=== PATIENT | female | born 1990 ===

== ENCOUNTER 2023-01-23 10:22 | Emergency (ER) | payer OTHER, MEDICAID, SELFPAY ==
--- NOTE | ~2023-01-23 | CT_ITS ---
EXAMINATION: CT ABDOMEN AND PELVIS WITH CONTRAST CLINICAL INFORMATION: Right lower quadrant abdominal pain COMPARISON: None available. TECHNIQUE: Multidetector volumetric images were obtained from the superior aspect of the liver through the pubic symphysis following administration 85 mL of Omnipaque 350 intravenous contrast. Sagittal and coronal reformatted images were obtained on the technologist's workstation. Oral contrast: No This CT examination was performed using dose optimization techniques as appropriate, variously including the following: *Automated exposure control *Adjustment of mA and/or kV according to patient size (this includes techniques or standardized protocols for targeted exams where dose is matched to indication/reason for exam; i.e. extremities or head) *Use of iterative reconstruction technique DLP: 509 mGy-cm FINDINGS: RECORD LABEL INTERNSHIP: Nonobstructive bowel pattern. Right hemipelvic phlebolith. LUNG BASES: Nonenlarged heart. No pericardial effusion. Minor left lower lobe atelectasis. LIVER, GALLBLADDER, AND BILIARY TREE: The liver is normal in size, shape, and attenuation. No focal hepatic lesion or biliary ductal dilatation is present. The gallbladder is unremarkable with no evidence of radiopaque gallstones, gallbladder wall thickening, or obvious pericholecystic inflammatory changes. PANCREAS: Unremarkable. SPLEEN: Unremarkable. ADRENAL GLANDS: Unremarkable. KIDNEYS AND URETERS: The kidneys are normal in size, shape, and attenuation. No hydronephrosis, hydroureter, or calculi seen. No perinephric stranding. BLADDER: Distended and unremarkable. GASTROINTESTINAL TRACT: Small hiatal hernia. Decompressed stomach. Nonobstructive bowel pattern. Study limited by lack of oral contrast. Nonobstructive bowel pattern. Unremarkable terminal ileum and appendix. Moderate fecal retention. ABDOMINAL WALL: Rectal diastasis containing transverse colon. Transverse colon does not extend into moderate sized umbilical hernia at this time. LYMPH NODES: Normal. VASCULAR: Unremarkable. PELVIC VISCERA: Prominent heterogeneous uterus. Endometrium measures 1.6 cm. 2 cm right ovarian cyst and left ovarian follicles with free fluid. Prominent enhancing left periuterine vessels and prominent gonadal veins. OSSEOUS STRUCTURES: Unremarkable. CT/CT abdomen pelvis w IV con IMPRESSION: CT findings raising possibility of left pelvic congestion syndrome. Correlate clinically. Enlarged heterogeneous uterus with thickened endometrium, ovarian follicles/cyst and free fluid. Correlate with menstrual status and symptomatology. Follow-up pelvic ultrasound if clinically indicated. Umbilical hernia and rectus diastasis. Fleischner guidelines were followed.
[2023-01-23 10:25] VITALS: BP 149/87; PULSE 76; RESP 19; TEMP 36.6; O2SAT 99; BMI 22.1
[2023-01-23 10:43] LABS: MANUAL DIFF FLAG NO
[2023-01-23 10:44] LABS: Basophils Absolute Auto 0.1 X10*3/uL (0.0-0.2); Basophils Percent Auto 0.6 % (0-2); Eosinophils Absolute Auto 0.5 X10*3/uL (0.0-0.4); Eosinophils Percent Auto 6.2 % (0-4); Hemoglobin 13.2 g/dl (12.0-16.0); Imm Gran Abs Auto 0.02 X10*3/uL (0.00-0.03); Imm Gran Pct Auto 0.2 % (0.0-0.4); Lymphocytes Absolute Auto 2.4 X10*3/uL (1.2-4.9); Lymphocytes Percent Auto 27.3 % (20-40); Mean Corpuscular HGB Conc 32.2 g/dl (31.0-35.0); Mean Corpuscular Hemoglobin 26.7 pg (27.0-33.0); Mean Corpuscular Volume 82.8 fL (80.0-98.0); Monocytes Absolute Auto 0.6 X10*3/uL (0.1-1.2); Monocytes Percent Auto 6.3 % (2-11); Neutrophils Absolute Auto 5.2 x10*3/uL (2.0-8.3); Neutrophils Percent Auto 59.4 % (45-73); Platelet Count 258 X10*3/uL (160-400); Red Blood Count 4.95 X10*6/uL (4.20-5.50); White Blood Count 8.8 X10*3/uL (4.8-10.8)
[2023-01-23 10:48] LABS: Appearance Urine Clear; Color Urine Yellow; Glucose Urine UA Negative (Negative); Leukocyte Esterase Urine Negative (Negative); Nitrite Urine Negative (Negative); PH 6.5 (5.0-9.0); Specific Gravity - Urine <= 1.005 (1.005-1.025); Urine Blood Negative (Negative); Urine Ketones Negative (Negative); Urine Protein Negative (Neg-Trace)
[2023-01-23 10:50] LABS: UPreg QC Valid YES; Urine Pregnancy NEGATIVE (NEGATIVE)
[2023-01-23 11:03] LABS: Alanine Aminotransferase 15 U/L (0-31); Albumin Level 4.4 g/dL (3.5-5.0); Alkaline Phosphatase 66 U/L (39-117); Anion Gap 10 (12-20); Aspartate Amino Transferase 19 U/L (5-31); Bilirubin Direct 0.1 mg/dL (0.0-0.5); Bilirubin Total 0.3 mg/dL (0.0-1.0); Blood Urea Nitrogen 6 mg/dL (9-16); Calcium 9.7 mg/dL (8.4-10.2); Carbon Dioxide 27 mmol/L (22-29); Chloride 105 mmol/L (96-108); Creatinine Clr Calc Pharmacy 113.5; Estimated Glomerular Filt Rate > 60; Glucose Random 83 mg/dL (60-115); Lipase 17 U/L (8-78); Potassium 3.6 mmol/L (3.3-5.1); Sodium 138 mmol/L (135-145); Total Protein 8.1 g/dL (6.5-8.0)
[2023-01-23 11:41] VITALS: BP 128/80; PULSE 81; RESP 16; TEMP 36.4; O2SAT 100
--- NOTE | 2023-01-23 11:46 | PC.NURSE ---
pt a&ox3, vss, pt verblaizing 8/10 right flank and RLQ pain that started 3 days ago. pt describes pain as burning sensation. pt denies v/d but has had nausea recently. RLQ and r flank tender to the touch. normoactive bs present. call walker placed within reach.
--- NOTE | 2023-01-23 11:53 | ED.ABDPAIN ---
HPI - Abdominal Pain General Chief Complaint: Abdominal Pain Stated Complaint: abdominal pain for 3 days Time Seen by Provider: 01/23/23 11:52 Source: patient Mode of arrival: ambulatory Limitations: no limitations History of Present Illness HPI narrative: RLQ pain for 3 days radiating into the back, slight nausea, no dysuria, no hematuria, LMP last month normal, denies MD elicited complaint: abdominal pain Onset (ago): day(s) Pain Consistency: constant Severity: mild Related Data Previous Rx's Medication Instructions Recorded naproxen 500 mg tablet (Naprosyn) 500 mg PO BID #20 tabs 01/23/23 Allergies Allergy/AdvReac Type Severity Reaction Status Date / Time No Known Allergies Allergy Verified 01/23/23 10:25 Review of Systems Review of Systems Yes all other systems are reviewed and are negative [facility] Social History Social History Alcohol intake: never Smoked in Last 30 Days: No Use of substances other than those prescribed or required for medical reasons: No Advance Directives: No Advance Directives Information Provided: No Patient : No Physical Exam ED Vital Signs: Vital Signs - 24 hr 01/23/23 10:25 01/23/23 11:41 01/23/23 13:23 Temperature 98 F 97.6 F Pulse Rate 76 81 73 Respiratory Rate 19 16 16 Blood Pressure 149/87 H 128/80 119/71 Pulse Oximetry 99 100 100 Oxygen Delivery Method Room Air Room Air Room Air BMI result Body Mass Index 22.1 Const General: healthy appearing Nutritional Appearance: average body habitus Orientation/consciousness: oriented to person and patient oriented x3 Limitations: no limitations HENMT Head: Yes normal to inspection Ears: external ears normal General nose exam: Normal external nose present Mouth: Normal oral and palatal mucosa present and oropharynx normal Throat: Yes posterior oropharynx normal Eyes General: appearance normal, both eyes and all related structures Neck Neck: Yes normal visual inspection Chest Chest palpation & inspection: normal inspection of the chest Resp Auscultation: clear to auscultation bilaterally Cardio Jugular venous distension: no JVD Rate: regular rate Rhythm: regular rhythm Heart sounds: S1 normal heart sound present and S2 normal heart sound present GI Other: mild right lower quadrant pain, slight guarding no rebound General: Yes no CVA tenderness Back/Spine/Pelvis Back: no CVA tenderness Skin General skin exam: no rashes or lesions noted Neuro General: oriented to person and patient oriented x3 Cranial nerves: Yes CN's II-XII intact bilaterally Motor exam (neuro): 5/5 motor strength present throughout Extrem General: Yes normal to inspection Psych Appearance: grossly normal Course Reevaluation(s) Reevaluation #1: normal wbc, no evidence of appendicitis on CT. Will treat with NSAIDS Time: 13:20 Medical Decision Making Differential Diagnosis Differential Diagnoses: The differential diagnosis associated with the presentation includes (appendicitis, ectopic , ovarian cyst, UTI, pyelonephritis were all considered) Admission/Observation Consideration of admission/observation: Escalation of care including admission/observation considered (upon arrival this patient was considered for admission) Lab Data MDM Lab Attestation statement: I reviewed the patient's lab results. (no elevated WBC count, no UTI) 01/23/23 10:38 01/23/23 10:38 Labs: Lab Results 01/23/23 01/23/23 01/23/23 Range/Units 10:38 10:38 10:38 WBC 8.8 (4.8-10.8) X10*3/uL RBC 4.95 (4.20-5.50) X10*6/uL Hgb 13.2 (12.0-16.0) g/dl Hct 41.0 (37.0-47.0) % MCV 82.8 (80.0-98.0) fL MCH 26.7 L (27.0-33.0) pg MCHC 32.2 (31.0-35.0) g/dl RDW 13.0 (11.0-16.0) % Plt Count 258 (160-400) X10*3/uL MPV 10.0 (9.4-12.3) fL Immature Gran % (Auto) 0.2 (0.0-0.4) % Neut % (Auto) 59.4 (45-73) % Lymph % (Auto) 27.3 (20-40) % [place] % (Auto) 6.3 (2-11) % Eos % (Auto) 6.2 H (0-4) % Baso % (Auto) 0.6 (0-2) % Lymph # (Auto) 2.4 (1.2-4.9) X10*3/uL [place] # (Auto) 0.6 (0.1-1.2) X10*3/uL Eos # (Auto) 0.5 H (0.0-0.4) X10*3/uL Baso # (Auto) 0.1 (0.0-0.2) X10*3/uL Abs Immat Gran (auto) 0.02 (0.00-0.03) X10*3/uL Absolute Neuts (auto) 5.2 (2.0-8.3) x10*3/uL Absolute Nucleated RBC 0.000 (0.0-0.012) X10*3/uL Nucleated RBC % (auto) 0.0 (0.0-0.2) /100WBC Sodium 138 (135-145) mmol/L Potassium 3.6 (3.3-5.1) mmol/L Chloride 105 (96-108) mmol/L Carbon Dioxide 27 (22-29) mmol/L Anion Gap 10 L (12-20) BUN 6 L (9-16) mg/dL Creatinine 0.66 (0.5-1.4) mg/dL Estim Creat Clear Calc 113.5 Estimated GFR > 60 Random Glucose 83 (60-115) mg/dL Calcium 9.7 (8.4-10.2) mg/dL Total Bilirubin 0.3 (0.0-1.0) mg/dL Direct Bilirubin 0.1 (0.0-0.5) mg/dL AST 19 (5-31) U/L ALT 15 (0-31) U/L Alkaline Phosphatase 66 (39-117) U/L Total Protein 8.1 H (6.5-8.0) g/dL Albumin 4.4 (3.5-5.0) g/dL Lipase 17 (8-78) U/L Urine Color Yellow Urine Appearance Clear Urine pH 6.5 (5.0-9.0) Ur Specific [place] <= 1.005 (1.005-1.025) Urine Protein Negative (Neg-Trace) mg/dL Urine Glucose (UA) Negative (Negative) mg/dL Urine Ketones Negative (Negative) mg/dL Urine Blood Negative (Negative) Urine Nitrite Negative (Negative) Ur Leukocyte Esterase Negative (Negative) Urine Test (NEGATIVE) 01/23/23 Range/Units 10:38 WBC (4.8-10.8) X10*3/uL RBC (4.20-5.50) X10*6/uL Hgb (12.0-16.0) g/dl Hct (37.0-47.0) % MCV (80.0-98.0) fL MCH (27.0-33.0) pg MCHC (31.0-35.0) g/dl RDW (11.0-16.0) % Plt Count (160-400) X10*3/uL MPV (9.4-12.3) fL Immature Gran % (Auto) (0.0-0.4) % Neut % (Auto) (45-73) % Lymph % (Auto) (20-40) % [place] % (Auto) (2-11) % Eos % (Auto) (0-4) % Baso % (Auto) (0-2) % Lymph # (Auto) (1.2-4.9) X10*3/uL [place] # (Auto) (0.1-1.2) X10*3/uL Eos # (Auto) (0.0-0.4) X10*3/uL Baso # (Auto) (0.0-0.2) X10*3/uL Abs Immat Gran (auto) (0.00-0.03) X10*3/uL Absolute Neuts (auto) (2.0-8.3) x10*3/uL Absolute Nucleated RBC (0.0-0.012) X10*3/uL Nucleated RBC % (auto) (0.0-0.2) /100WBC Sodium (135-145) mmol/L Potassium (3.3-5.1) mmol/L Chloride (96-108) mmol/L Carbon Dioxide (22-29) mmol/L Anion Gap (12-20) BUN (9-16) mg/dL Creatinine (0.5-1.4) mg/dL Estim Creat Clear Calc Estimated GFR Random Glucose (60-115) mg/dL Calcium (8.4-10.2) mg/dL Total Bilirubin (0.0-1.0) mg/dL Direct Bilirubin (0.0-0.5) mg/dL AST (5-31) U/L ALT (0-31) U/L Alkaline Phosphatase (39-117) U/L Total Protein (6.5-8.0) g/dL Albumin (3.5-5.0) g/dL Lipase (8-78) U/L Urine Color Urine Appearance Urine pH (5.0-9.0) Ur Specific [place] (1.005-1.025) Urine Protein (Neg-Trace) mg/dL Urine Glucose (UA) (Negative) mg/dL Urine Ketones (Negative) mg/dL Urine Blood (Negative) Urine Nitrite (Negative) Ur Leukocyte Esterase (Negative) Urine Test NEGATIVE (NEGATIVE) Independent Interpretation I performed an independent interpretation of an: CT Scan (no appendicitis seen by me) Radiology Impression Discussion of test interpretation with radiology: I have reviewed the radiologist's reading. (no appendicitis) Tests considered The following testing was considered but not selected: I considered an ultrasound but patientt was not and there is no evidence of large ovarian cyst Prescription Management I considered prescription management with: Antibiotic (but no evidence of UTI or infection) Medications Administered Discontinued Medications Generic Name Dose Route Start Last Admin Trade Name Freq PRN Reason Stop Dose Admin Iohexol 85 ml 01/23/23 12:28 01/23/23 12:28 Iohexol 350 Mg/Ml 100 Ml Infus..Btl IV 01/23/23 12:29 85 ml ONCE ONE Administration Ketorolac Tromethamine 30 mg 01/23/23 13:25 01/23/23 13:39 Ketorolac Tromethamine 30 Mg/Ml Vial IVPUSH 01/23/23 13:26 30 mg ONCE ONE Administration Discharge Plan Discharge Clinical Impression: Abdominal pain Patient Disposition: Home, Self-Care Instructions: Abdominal Pain (ED) Prescriptions: New naproxen [Naprosyn] 500 mg tablet 500 mg PO BID Qty: 20 0RF Referrals: Physician,Unknown J [Primary Care Provider] - 3 days Stand Alone Forms: Work/School Release Interventions: ED Discharge Assessment Last Done: 01/23/23 13:47
--- OUTSIDE RECORDS SUMMARY | 2023-01-23 11:59 | XMS_ITS | Continuity of Care Document ---
Author Name Unknown Organization [facility] ter Address [address] [place] [id number]- Care Team Providers Care Application Development Team Lead Name Role Phone Mercy Arias DO Primary Care Physician Encounter [facility] Date(s): 08/13/19 - 08/15/[address] [address]- [facility] Discharge Disposition: A-D/C Home Attending Physician: Tamera Lujan MD Admitting Physician: Tamera Lujan MD Referring Physician: Not on Staff, Referring MD Allergies, Adverse Reactions, Alerts Substance Reaction Severity Status NKA Active Immunizations Given and Recorded Vaccine Date Status Refusal Reason tetanus/diphtheria/pertussis, acel(Tdap) 06/02/19 Given influenza virus vaccine, inactivated 03/17/19 Give n influenza virus vaccine, inactivated 06/24/17 Give n Medications ferrous sulfate 325 mg oral enteric coated tablet 325 mg, 1, tablet, By Mouth, Daily, # 90 tablet, Refills 1, Tot. Refills 1, Maintenance, 06/16/19 15:39:00 EST, Route to Pharmacy Electronically, [facility] #[id number], 170, cm, 06/16/19 15:27:00 EST, Height Start Date: 06/16/19 Status: Ordered Flonase 50 mcg/inh nasal spray 1 sprays, Nares, Both, Daily in AM, # 1 each, 6 Refills, Maintenance, 06/24/17 15:45:43 EST, [place] Start Date: 06/24/17 Status: Ordered Multivitamins with Vitamin B Complex, Vitamin C, Minerals and L- Methylfolate oral capsule 1 capsule, By Mouth, Daily, # 30 capsule, 11 Refills, Maintenance, 01/01/19 15:31:22 EDT, Capsule, 1 capsule By Mouth Daily Start Date: 01/01/19 Status: Ordered Problem List Condition Effective Dates Status Health Status Inform ant Anemia(Confirmed) Active Body mass index (BMI) less t vargas or equal to 19 in adult(Confirmed) Active Size of fetus inconsistent w ith dates, antepartum(Confirmed) Active Hx of section(Confirmed) Active Vital Signs Most recent to oldest [Reference Range]: 1 2 3 Height 168 cm (08/15/19 8:31 AM) 168 cm (08/15/19 12:22 AM) 168 cm (08/14/19 5:00 PM) Weight 70.5 kg (08/13/19 7:39 AM) Oxygen Saturation [94-100 %] 99 % (08/13/19 2:00 PM) 99 % (08/13/19 1:45 PM) 99 % (08/13/19 11:45 AM) Pulse Rate [55-90 bpm] 75 bpm (08/15/19 8:31 AM) 72 bpm (08/15/19 12:22 AM) 77 bpm (08/14/19 5:00 PM) Body Mass Index [18.5-24.99] 24.98 (08/13/19 7:39 AM) Blood Pressure [90-138/55-84 mm Hg] 116/68mm Hg (08/15/19 8:31 AM) 123/72mm Hg (08/15/19 12:22 AM) 119/72mm Hg (08/14/19 5:00 PM) Respiratory Rate [16-30 br/min] 20 br/min (08/15/19 9:02 AM) 20 br/min (08/15/19 9:02 AM) 19 br/min (08/15/19 8:31 AM) Temperature [96.8-100.4 DegF] 97.9 DegF (08/15/19 8:31 AM) 98.1 DegF (08/15/19 12:22 AM) 98.5 DegF (08/14/19 5:00 PM) Mode of Delivery (Oxygen) Room air (08/13/19 6:51 AM) Blood pressure sites Arm, right (08/15/19 8:31 AM) Arm, left (08/14/19 12:00 AM) Arm, right (08/13/19 9:00 PM) Temperature Route Oral (08/15/19 8:31 AM) Oral (08/15/19 12:22 AM) Oral (08/14/19 5:00 PM) Dry Weight 70.5 kg (08/13/19 7:39 AM) Weight Obtained Via Patient/family state d (08/13/19 7:39 AM) Dry Weight Obtained Via Patient/family s tated (08/13/19 7:39 AM) Sensory deficits None (08/13/19 7:39 AM) None (08/13/19 7:39 AM) Mobility assistance Independent (08/13/19 7:39 AM) Social History Social History Type Response Smoking Status Never (less than 100 in lifetime); Tobacco user in household: No entered on: 01/09/19 Sex
--- OUTSIDE RECORDS SUMMARY | 2023-01-23 11:59 | XMS_ITS | Continuity of Care Document ---
Author Name Unknown Organization [facility] ter Address [address] [place] [id number]- Care Team Providers Care Sales Relationship Manager Name Role Phone Niall MORTENSEN, Krystyna Primary Care Physician Encounter [facility] [place] Date(s): 05/01/22 - 05/31/[address] [address] Allergies, Adverse Reactions, Alerts No Known Allergies Immunizations Given and Recorded Vaccine Date Status Refusal Reason SARS-CoV-2 (COVID-19) mRNA-1273 vaccine 11/24/20 R ecorded SARS-CoV-2 (COVID-19) mRNA-1273 vaccine 10/27/20 R ecorded tetanus/diphtheria/pertussis, acel(Tdap) 06/02/19 Given influenza virus vaccine, inactivated 03/17/19 Give n influenza virus vaccine, inactivated 06/24/17 Give n Medications Drysol 20% topical solution See Instructions, apply as needed for excessive sweating, # 60 mL, 1 Refills, 05/05/21 12:00:00 EST, [facility] #[id number], apply as needed for excessive sweating, 168, cm, 10/06/20 15:49:00 EDT, Height, 70.5, kg, 08/13/19 11:32:00 EDT, Dry Weight Start Date: 05/05/21 Status: Ordered estarylla tablets estarylla tablets, See Instructions, # 30 each, Refills 11, Tot. Refills 11, Maintenance, take one tablet daily, 04/30/22 13:27:00 EST, Supply, 168, cm, 02/27/22 14:12:00 EDT, Height, 58.8, kg, 06/13/21 17:35:00 EST, Dry Weight Start Date: 04/30/22 Status: Ordered ferrous sulfate 325 mg oral enteric coated tablet 325 mg, 1, tablet, By Mouth, Daily, # 90 tablet, Refills 1, Tot. Refills 1, Maintenance, 06/16/19 15:39:00 EST, Route to Pharmacy Electronically, [facility] #[id number], 170, cm, 06/16/19 15:27:00 EST, Height Start Date: 06/16/19 Status: Ordered Flonase 50 mcg/inh nasal spray 1 sprays, Nares, Both, Daily in AM, # 16 Gm, 6 Refills, Maintenance, 10/18/21 14:50:00 EDT, [place], [facility] #[id number], 1 sprays Nares, Both Daily in AM,x30 days, 168, cm, 10/18/21 14:38:00 EDT, Height, 58.8, kg, 06/13/21 17:35:00 EST, Dry Weight Start Date: 10/18/21 Stop Date: 05/16/22 Status: Ordered Multivitamins with Vitamin B Complex, Vitamin C, Minerals and L- Methylfolate oral capsule 1 capsule, By Mouth, Daily, # 30 capsule, 11 Refills, Maintenance, 01/01/19 15:31:22 EDT, Capsule, 1 capsule By Mouth Daily Start Date: 01/01/19 Status: Ordered Sprintec 0.25 mg-35 mcg oral tablet 1 tablet, By Mouth, Daily, # 28 tablet, 1 Refills, Maintenance, 09/14/21 11:54:00 EDT, Tablet, [facility] #[id number], 1 tablet By Mouth Daily,x28 days, 168, cm, 10/06/20 15:49:00 EDT, Height, 58.8, kg, 06/13/21 17:35:00 EST, Dry Weight Start Date: 09/14/21 Stop Date: 11/09/21 Status: Ordered Zofran 4 mg oral tablet 1 tablet = 4 mg, By Mouth, Every 8 hours, # 12 tablet, 0 Refills, Acute 06/14/22 18:06:00 EST, 06/13/21 18:06:00 EST, Tablet, [facility] #[id number], Partial fill upon patient request if the prescription is for a schedule II opioid drug., 168, cm... Start Date: 06/13/21 Stop Date: 06/14/22 Status: Ordered Problem List Condition Confirmation Course Effective Dates Status Health St atus Informant Anemia Confirmed Active Body mass index (BMI) less than or equal to 19 in adult Confirmed Active Size of fetus inconsistent with dates, antepartum Confirmed Active Hx of section Confirmed Active period Confirmed Active Social History Social History Type Response Smoking Status Never (less than 100 in lifetime); Tobacco user in household: No entered on: 01/09/19 Sex Patient Care team information Care Team Personnel Name: Krystyna Tierney MD Position: [facility] Primary Care Physician Member Role: PCP Address: Address: [address] [place] [address]- Care Team Related Persons Name: KAREN TRACY Address: [id number] Address: [address] [address] [place] Name: IVY LINARES Address: [address] [address]
--- OUTSIDE RECORDS SUMMARY | 2023-01-23 11:59 | XMS_ITS | Continuity of Care Document ---
Author Name Unknown Organization [facility] Address [address] [place] [address]- Care Team Providers Care Chief Cardiopulmonary Technologist Name Role Phone Krystyna Tierney MD Primary Care Physician Encounter [id number] Date(s): 06/14/22 - 07/14/[address] [address]- Attending Physician: Admtr, Ayanna Admitting Physician: AdmtrAyanna Referring Physician: Admtr, Ar8 Allergies, Adverse Reactions, Alerts No Known Allergies [...] 60 mL, 1 Refills, 05/05/21 12:00:00 EST, [facility] #[id number], apply as needed for excessive sweating, 168, [...] 06/16/19 15:39:00 EST, Route to Pharmacy Electronically, [facility] #[id number], 170, cm, 06/16/19 15:27:00 EST, Height Start Date: 06/16/19 Status: Ordered Flonase 50 mcg/inh nasal spray 1 sprays, Nares, Both, Daily in AM, # 16 Gm, 6 Refills, Maintenance, 06/14/22 15:49:00 EST, [place], [facility] #[id number], 1 sprays Nares, Both Daily in AM,x30 days, 168, cm, 06/14/22 15:02:00 EST, Height, 61, kg, 05/03/22 13:39:00 EST, Dry Weight Start Date: 06/14/22 Stop Date: 01/10/23 Status: Ordered metronidazole topical 0.75% gel with applicator 1 applicator, Vaginally, Daily at bedtime, # 70 Gm, 1 Refills, Maintenance, 06/29/22 13:31:00 EST, Gel, [facility] #[id number], Partial fill upon patient request if the prescription is for a schedule II opioid drug., 1 applicator Vaginally Daily... Start Date: 06/29/22 Stop Date: 07/09/22 Status: Ordered Marimar 3 mg-0.02 mg oral tablet 1 tablet, By Mouth, Daily, # 84 tablet, 4 Refills, Maintenance, 06/26/22 14:54:00 EST, [facility] #[id number], Partial fill upon patient request if the prescription is for a schedule II opioid drug., 1 tablet By Mouth Daily, 168, cm, 06/26/22 14:... Start Date: 06/26/22 Status: Ordered Multivitamins with Vitamin B Complex, Vitamin C, Minerals and L- Methylfolate oral capsule 1 capsule, By Mouth, Daily, # 30 capsule, 11 Refills, Maintenance, 01/01/19 15:31:22 EDT, Capsule, 1 capsule By Mouth Daily Start Date: 01/01/19 Status: Ordered Sprintec 0.25 mg-35 mcg oral tablet 1 tablet, By Mouth, Daily, # 28 tablet, 1 Refills, Maintenance, 09/14/21 11:54:00 EDT, Tablet, [facility] #[id number], 1 tablet By Mouth Daily,x28 days, 168, cm, 10/06/20 15:49:00 EDT, Height, 58.8, kg, 06/13/21 17:35:00 EST, Dry Weight Start Date: 09/14/21 Stop Date: 11/09/21 Status: Ordered Problem List Condition Confirmation Course [...] Team Personnel Name: Krystyna Tierney MD Position: [facility] Primary Care Physician Member Role: PCP Address: Address: [address] [place] [address]- Care Team Related Persons Name: KAREN TRACY Address: Address: [address] [address] Name: IVY LINARES Address: [address] [address]
--- OUTSIDE RECORDS SUMMARY | 2023-01-23 11:59 | XMS_ITS | Continuity of Care Document ---
Author Name Unknown Organization [facility] ter Address [address] [place] [address]- Care Team Providers Care Theatre Director Name Role Phone Mercy Arias DO Primary Care Physician Encounter [facility] Date(s): 06/05/19 - 06/05/[address] [address]- [facility] Attending Physician: Leona Mcintyre CNM Allergies, Adverse Reactions, Alerts Substance Reaction Severity Status NKA Active Immunizations Given and Recorded Vaccine Date Status Refusal Reason tetanus/diphtheria/pertussis, acel(Tdap) 06/02/19 Given influenza virus vaccine, inactivated 03/17/19 Give n influenza virus vaccine, inactivated 06/24/17 Give n Medications Drysol 20% topical solution 1 application, Topically, Daily at bedtime, PRN as needed for excessive sweating, # 60 mL, 1 Refills, Maintenance, 11/26/17 15:08:42 EDT, Solution, Rx in [place], 1 application Topically Daily at bedtime,PRN:as needed for excessive sweating Start Date: 11/26/17 Status: Ordered Flonase 50 mcg/inh nasal spray 1 sprays, Nares, Both, Daily in AM, # 1 each, 6 Refills, Maintenance, 06/24/17 15:45:43 EST, [place] Start Date: 06/24/17 Status: Ordered Multivitamins with Vitamin B Complex, Vitamin C, Minerals and L- Methylfolate oral capsule 1 capsule, By Mouth, Daily, # 30 capsule, 11 Refills, Maintenance, 01/01/19 15:31:22 EDT, Capsule, 1 capsule By Mouth Daily Start Date: 01/01/19 Status: Ordered Sudafed 24-Hour oral tablet, extended release 1 tablet = 240 mg, By Mouth, Daily, PRN as needed for cold symptoms, # 10 tablet, 0 Refills, Maintenance, 04/14/19 15:46:19 EST, ER Tablet Start Date: 04/14/19 Status: Ordered Social History Social History Type Response Smoking Status Never (less than 100 in lifetime); Tobacco user in household: No entered on: 01/09/19 Sex
--- OUTSIDE RECORDS SUMMARY | 2023-01-23 11:59 | XMS_ITS | Continuity of Care Document ---
Author Name Unknown Organization [facility] Address [address] [place] [address]- Care Team Providers Care Maturity Checker Name Role Phone Krystyna Tierney MD Primary Care Physician [phone] Encounter [facility] [place] Date(s): 09/30/20 - 11/05/[address] [address]- Attending Physician: Not on Staff, Attending MD Referring Physician: Krystyna Tierney MD Allergies, Adverse Reactions, Alerts Substance Reaction [...] 06/16/19 15:39:00 EST, Route to Pharmacy Electronically, [facility] #[id number], 170, cm, 06/16/19 15:27:00 EST, Height Start Date: 06/16/19 Status: Ordered Flonase 50 mcg/inh nasal spray 1 sprays, Nares, Both, Daily in AM, # 1 each, 6 Refills, Maintenance, 06/24/17 15:45:43 EST, [place] Start Date: 06/24/17 Status: Ordered Multivitamins with Vitamin B Complex, Vitamin C, Minerals and L- Methylfolate oral capsule 1 capsule, By Mouth, Daily, # 30 capsule, 11 Refills, Maintenance, 01/01/19 15:31:22 EDT, Capsule, 1 capsule By Mouth Daily Start Date: 01/01/19 Status: Ordered Sprintec 0.25 mg-35 mcg oral tablet 1 tablet, By Mouth, Daily, # 28 tablet, 11 Refills, Maintenance, 09/27/20 11:36:00 EDT, Tablet, [id number], 1 tablet By Mouth Daily,x28 days, 168, cm, 09/22/19 16:50:00 EDT, Height, 70.5, kg, 08/13/19 11:32:00 EDT, Dry Weight Start Date: 09/27/20 Stop Date: 08/29/21 Status: Ordered Problem List Condition Effective Dates Status Health Status Inform ant Anemia(Confirmed) Active Body mass index (BMI) less t vargas or equal to 19 in adult(Confirmed) Active Size of fetus inconsistent w ith dates, antepartum(Confirmed) Active Hx of section(Confirmed) Active period(Confirmed) Active Social History Social History Type Response Smoking Status Never (less than 100 in lifetime); Tobacco user in household: No entered on: 01/09/19 Sex
--- OUTSIDE RECORDS SUMMARY | 2023-01-23 11:59 | XMS_ITS | Continuity of Care Document ---
Author Name Unknown Organization [facility] Address [address] [place] [address]- Care Team Providers Care Seasonal Customer Service Associate Name Role Phone Hugo CRUMP Mercy Primary Care Physician Encounter [facility] [place] Date(s): 09/01/19 - 09/08/[address] [address] [place] Attending Physician: Nuria Haynes MD Admitting Physician: Nuria Haynes MD Referring Physician: Cheryl Conley CNM Allergies, Adverse Reactions, Alerts Substance Reaction [...] 06/16/19 15:39:00 EST, Route to Pharmacy Electronically, [facility] #[id number], 170, cm, 06/16/19 15:27:00 EST, Height Start Date: 06/16/19 Status: Ordered Flonase 50 mcg/inh nasal spray 1 sprays, Nares, Both, Daily in AM, # 1 each, 6 Refills, Maintenance, 06/24/17 15:45:43 EST, [place] Start Date: 06/24/17 Status: Ordered Multivitamins with [...] dates, antepartum(Confirmed) Active Hx of section(Confirmed) Active Social History Social History Type Response Smoking Status Never (less than 100 in lifetime); Tobacco user in household: No entered on: 01/09/19 Sex
--- OUTSIDE RECORDS SUMMARY | 2023-01-23 11:59 | XMS_ITS | Continuity of Care Document ---
Author Name Unknown Organization [facility] Address [address] [place] [address]- Care Team Providers Care Refrigeration Specialist Name Role Phone Krystyna Tierney MD Primary Care Physician Encounter [facility] [place] Date(s): 09/26/20 - 10/26/[address] [address]- Allergies, Adverse Reactions, Alerts Substance Reaction Severity [...] 06/16/19 15:39:00 EST, [id number], 170, cm, 06/16/19 15:27:00 EST, Height Start Date: 06/16/19 Status: Ordered Flonase 50 mcg/inh nasal spray 1 sprays, Nares, Both, Daily in AM, # 1 each, 6 Refills, Maintenance, 06/24/17 15:45:43 EST, [place] Start Date: 06/24/17 Status: Ordered Multivitamins with [...] 11 Refills, Maintenance, 09/27/20 11:36:00 EDT, Tablet, [facility] #[id number], 1 tablet By Mouth Daily,x28 days, 168, [...]
--- OUTSIDE RECORDS SUMMARY | 2023-01-23 11:59 | XMS_ITS | Continuity of Care Document ---
Author Name Unknown Organization [facility] Address [address] [place] [id number]- Care Team Providers Care Collar Starcher Name Role Phone Krystyna Tierney MD Primary Care Physician Encounter [facility] Date(s): 06/13/21 - 06/13/[address] [address]- Encounter Diagnosis COVID-19(Final) - 06/13/21 Discharge Disposition: A-D/C Home Attending Physician: Jm Reis MD Admitting Physician: Jm Reis MD Referring Physician: Not on Staff, Referring [...] 60 mL, 1 Refills, 05/05/21 12:00:00 EST, [facility] #[id number], apply as needed for excessive sweating, 168, cm, 10/06/20 15:49:00 EDT, Height, 70.5, kg, 08/13/19 11:32:00 EDT, Dry Weight Start Date: 05/05/21 Status: Ordered ferrous sulfate 325 mg oral enteric coated tablet 325 mg, 1, tablet, By Mouth, Daily, # 90 tablet, Refills 1, Tot. Refills 1, Maintenance, 06/16/19 15:39:00 EST, Route to Pharmacy Electronically, [facility] #[id number], 170, cm, 06/16/19 15:27:00 EST, Height Start Date: 06/16/19 Status: Ordered Flonase 50 mcg/inh nasal spray 1 sprays, Nares, Both, Daily in AM, # 1 each, 6 Refills, Maintenance, 06/24/17 15:45:43 EST, [place] Start Date: 06/24/17 Status: Ordered Multivitamins with [...] 11 Refills, Maintenance, 09/27/20 11:36:00 EDT, Tablet, [facility] #[id number], 1 tablet By Mouth Daily,x28 days, 168, cm, 09/22/19 16:50:00 EDT, Height, 70.5, kg, 08/13/19 11:32:00 EDT, Dry Weight Start Date: 09/27/20 Stop Date: 08/29/21 Status: Ordered Zofran 4 mg oral tablet 1 tablet = 4 mg, By Mouth, Every 8 hours, # 12 tablet, 0 Refills, Acute 06/14/22 18:06:00 EST, 06/13/21 18:06:00 EST, Tablet, [facility] #[id number], Partial fill upon patient request if the prescription is for a schedule II opioid drug., 168, cm... Start Date: 06/13/21 Stop Date: 06/14/22 Status: Ordered Problem List Condition Effective Dates Status Health Status Inform ant Anemia(Confirmed) Active Body mass index (BMI) less t vargas or equal to 19 in adult(Confirmed) Active Size of fetus inconsistent w ith dates, antepartum(Confirmed) Active Hx of section(Confirmed) Active period(Confirmed) Active Vital Signs Most recent to oldest [Reference Range]: 1 2 Weight 58.8 kg (06/13/21 5:35 PM) 58.8 kg (06/13/21 5:24 PM) Oxygen Saturation [94-100 %] 100 % (06/13/21 5:24 PM) Pulse Rate [55-90 bpm] 62 bpm (06/13/21 5:24 PM) Blood Pressure [90-138/55-84 mm Hg] 129/ 88mm Hg (06/13/21 5:24 PM) Respiratory Rate [16-30 br/min] 18 br/mi n (06/13/21 5:24 PM) Temperature [96.8-100.4 DegF] 98.9 DegF (06/13/21 5:24 PM) Mode of Delivery (Oxygen) Room air (06/13/21 5:24 PM) Blood pressure sites Arm, left (06/13/21 5:24 PM) Temperature Route Oral (06/13/21 5:24 PM) Dry Weight 58.8 kg (06/13/21 5:35 PM) 58.8 kg (06/13/21 5:24 PM) Weight Obtained Via Standing scale (06/13/21 5:24 PM) Dry Weight Obtained Via Standing scale (06/13/21 5:24 PM) Social History Social History Type Response Smoking Status Never (less than 100 in lifetime); Tobacco user in household: No entered on: 01/09/19 Sex
--- OUTSIDE RECORDS SUMMARY | 2023-01-23 11:59 | XMS_ITS | Continuity of Care Document ---
Author Name Unknown Organization [facility] Address [address] [place] [address]- Care Team Providers Care Certified Dialysis Technician Name Role Phone Mercy Arias DO Primary Care Physician Encounter [facility] [place] Date(s): 09/22/19 - 10/22/[address] [address]- [place] Attending Physician: AdmAyanna camara Admitting Physician: AdmtrAyanna Referring Physician: Admtr, Ar8 Allergies, Adverse Reactions, Alerts Substance Reaction Severity [...] 06/16/19 15:39:00 EST, Route to Pharmacy Electronically, [facility] #[id number], 170, cm, 06/16/19 15:27:00 EST, Height Start Date: 06/16/19 Status: Ordered Flonase 50 mcg/inh nasal spray 1 sprays, Nares, Both, Daily in AM, # 1 each, 6 Refills, Maintenance, 06/24/17 15:45:43 EST, [place] Start Date: 06/24/17 Status: Ordered Multivitamins with Vitamin B Complex, Vitamin C, Minerals and L- Methylfolate oral capsule 1 capsule, By Mouth, Daily, # 30 capsule, 11 Refills, Maintenance, 01/01/19 15:31:22 EDT, Capsule, 1 capsule By Mouth Daily Start Date: 01/01/19 Status: Ordered Sprintec 0.25 mg-35 mcg oral tablet 1 tablet, By Mouth, Daily, # 28 tablet, 11 Refills, Maintenance, 09/22/19 11:06:00 EDT, Tablet, [facility] #[id number], 1 tablet By Mouth Daily, 168, cm, 08/15/19 8:31:00 EDT, Height, 70.5, kg, 08/13/19 11:32:00 EDT, Dry Weight Start Date: 09/22/19 Status: Ordered Problem List Condition Effective Dates [...]
--- OUTSIDE RECORDS SUMMARY | 2023-01-23 11:59 | XMS_ITS | Continuity of Care Document ---
Author Name Unknown Organization [facility] Address [address] [place] [address]- Care Team Providers Care Screw Eye Assembler Name Role Phone Krystyna Tierney MD Primary Care Physician [place] [id number] Date(s): 02/27/22 - 03/29/[address] [address]- Attending Physician: AdmtrAyanna Admitting Physician: Admtr, Ar8 Referring Physician: Admtr, Ar8 Allergies, Adverse Reactions, [...] # 60 mL, 1 Refills, [id number], apply as needed for excessive sweating, 168, cm, 10/06/20 15:49:00 EDT, Height, 70.5, kg, 08/13/19 11:32:00 EDT, Dry Weight Start Date: 05/05/21 Status: Ordered ESTARYLLA TABLETS 28S ESTARYLLA TABLETS 28S, 1, tablet, By Mouth, Daily, # 28 tablet, 11 Refills, 168, cm, 10/18/21 14:38:00 EDT, Height, 58.8, kg, 06/13/21 17:35:00 EST, Dry Weight Start Date: 11/09/21 Status: Ordered ferrous sulfate 325 mg oral enteric coated tablet 325 mg, 1, tablet, By Mouth, Daily, # 90 tablet, Refills 1, Tot. Refills 1, Maintenance, 06/16/19 15:39:00 EST, Route to Pharmacy Electronically, [facility] #[id number], 170, cm, 06/16/19 15:27:00 EST, Height Start Date: 06/16/19 Status: Ordered Flonase 50 mcg/inh nasal spray 1 sprays, Nares, Both, Daily in AM, # 16 Gm, 6 Refills, Maintenance, 10/18/21 14:50:00 EDT, [place], [facility] #[id number], 1 sprays Nares, Both Daily in AM,x30 [...] 1 Refills, Maintenance, 09/14/21 11:54:00 EDT, Tablet, [facility] #[id number], 1 tablet By Mouth Daily,x28 days, 168, cm, 10/06/20 15:49:00 EDT, Height, 58.8, kg, 06/13/21 17:35:00 EST, Dry Weight Start Date: 09/14/21 Stop Date: 11/09/21 Status: Ordered Zofran 4 mg oral tablet 1 tablet = 4 mg, By Mouth, Every 8 hours, # 12 tablet, 0 Refills, Acute 06/14/22 18:06:00 EST, 06/13/21 18:06:00 EST, Tablet, [facility] #[id number], Partial fill upon patient request if the [...] on: 01/09/19 Sex Patient Care team information Personnel Name: Krystyna Tierney MD Address: Address: [address] [place] [address]
--- OUTSIDE RECORDS SUMMARY | 2023-01-23 11:59 | XMS_ITS | Continuity of Care Document ---
Author Name Unknown Organization [facility] Address [address] [place] [address]- Care Team Providers Care Adhesive Bandage Machine Operator Name Role Phone Krystyna Tierney MD Primary Care Physician Encounter [facility] [place] Date(s): 06/06/22 - 07/06/[address] [address] Allergies, Adverse Reactions, Alerts No Known Allergies [...] 60 mL, 1 Refills, 05/05/21 12:00:00 EST, [facility] #[id number], apply as needed for excessive sweating, 168, [...] 06/16/19 15:39:00 EST, Route to Pharmacy Electronically, [facility] #[id number], 170, cm, 06/16/19 15:27:00 EST, [place] Start Date: 06/16/19 Status: Ordered Flonase 50 mcg/inh nasal spray 1 sprays, Nares, Both, Daily in AM, # 16 Gm, 6 Refills, Maintenance, 06/14/22 15:49:00 EST, [place], [facility] #[id number], 1 sprays Nares, Both Daily in AM,x30 days, 168, cm, 06/14/22 15:02:00 EST, Height, 61, kg, 05/03/22 13:39:00 EST, Dry Weight Start Date: 06/14/22 Stop Date: 01/10/23 Status: Ordered metronidazole topical 0.75% gel with applicator 1 applicator, Vaginally, Daily at bedtime, # 70 Gm, 1 Refills, Maintenance, 06/29/22 13:31:00 EST, [place], [facility] #09292, Partial fill upon patient request if the prescription is for a schedule II opioid drug., 1 applicator Vaginally Daily... Start Date: 06/29/22 Stop Date: 07/09/22 Status: Ordered Marimar 3 mg-0.02 mg oral tablet 1 tablet, By Mouth, Daily, # 84 tablet, 4 Refills, Maintenance, 06/26/22 14:54:00 EST, [facility] #[id number], Partial fill upon patient request if the [...] 1 Refills, Maintenance, 09/14/21 11:54:00 EDT, Tablet, [facility][id number], 1 tablet By Mouth Daily,x28 days, 168, [...] Team Personnel Name: Krystyna Tierney MD Position: [facility] Primary Care Physician Member Role: PCP Address: Address: [address] [place] [address]- Care Team Related Persons Name: KAREN TRACY Address: [address] Address: home [address] [address] [place] Name: IVY LINARES Address: [address] [address]
--- OUTSIDE RECORDS SUMMARY | 2023-01-23 11:59 | XMS_ITS | Continuity of Care Document ---
Author Name Unknown Organization [facility] Address [address] [place] [address]- Care Team Providers Care Telephone Claims Representative Name Role Phone Krystyna Tierney MD Primary Care Physician Encounter [facility] [place] Date(s): 05/05/21 - 06/04/[address] [address] Allergies, Adverse Reactions, Alerts Substance Reaction Severity Status NKA Active Immunizations Given and Recorded Vaccine Date Status Refusal Reason tetanus/diphtheria/pertussis, acel(Tdap) 06/02/19 Given influenza virus vaccine, inactivated 03/17/19 Give n influenza virus vaccine, inactivated 06/24/17 Give n Medications Drysol 20% topical solution See Instructions, apply as needed for excessive sweating, # 60 mL, 1 Refills, 05/05/21 12:00:00 EST, [facility] #[id number], apply as needed for excessive sweating, 168, cm, 10/06/20 15:49:00 EDT, Height, 70.5, kg, 08/13/19 11:32:00 EDT, Dry Weight Start Date: 05/05/21 Status: Ordered ferrous sulfate 325 mg oral enteric coated tablet 325 mg, 1, tablet, By Mouth, Daily, # 90 tablet, Refills 1, Tot. Refills 1, Maintenance, 06/16/19 15:39:00 EST, Route to Pharmacy Electronically, [facility] #[id number], 170, cm, 06/16/19 15:27:00 EST, Height Start Date: 06/16/19 Status: Ordered Flonase 50 mcg/inh nasal spray 1 sprays, Nares, Both, Daily in AM, # 1 each, 6 Refills, Maintenance, 06/24/17 15:45:43 EST, [place] Start Date: 06/24/17 Status: Ordered Multivitamins with [...] 11 Refills, Maintenance, 09/27/20 11:36:00 EDT, Tablet, [facility] #[id number], 1 tablet By Mouth Daily,x28 days, 168, [...]
--- OUTSIDE RECORDS SUMMARY | 2023-01-23 11:59 | XMS_ITS | Continuity of Care Document ---
Author Name Unknown Organization [facility] Address [address] [place] [address]- Care Team Providers Care Software Application Tester Name Role Phone Krystyna Tierney MD Primary Care Physician [phone] [place] [facility] 10/06/20 - 11/05/[address] [address]- Attending Physician: AdmAyanna camara Admitting Physician: Admtr, Ar8 Referring Physician: Admtr, [...] 06/16/19 15:39:00 EST, Route to Pharmacy Electronically, [facility] #[id number], 170, cm, 06/16/19 15:27:00 EST, Height Start Date: 06/16/19 Status: Ordered Flonase 50 mcg/inh nasal spray 1 sprays, Nares, Both, Daily in AM, # 1 each, 6 Refills, Maintenance, 06/24/17 15:45:43 EST, [place] Start Date: 06/24/17 Status: Ordered Multivitamins with [...] 11 Refills, Maintenance, 09/27/20 11:36:00 EDT, Tablet, [facility] #[id number], 1 tablet By Mouth Daily,x28 days, 168, [...]
--- OUTSIDE RECORDS SUMMARY | 2023-01-23 11:59 | XMS_ITS | Continuity of Care Document ---
Author Name Unknown Organization [facility] Address [address], [place] [address]- Care Team Providers Care Paper Gluing Operator Name Role Phone Hguo CRUMP [facility] Primary Care Physician [phone] Encounter [facility] [place] Date(s): 08/04/19 - 08/11/19 [facility] [address] [place] [address]- Attending Physician: Coni Aquino MD Referring Physician: Olivia Wayne CNM Allergies, Adverse Reactions, Alerts Substance Reaction Severity Status NKA Active Immunizations Given and Recorded Vaccine Date Status Refusal Reason tetanus/diphtheria/pertussis, acel(Tdap) 06/02/19 Given influenza virus vaccine, inactivated 03/17/19 Give n influenza virus vaccine, inactivated 06/24/17 Give n Medications Drysol 20% topical solution 1 application, Topically, Daily at bedtime, PRN as needed for excessive sweating, # 60 mL, 1 Refills, Maintenance, 06/30/19 15:58:00 EST, Solution, [facility] #[id number], Rx in Fijian, 1 application Topically Daily at bedtime,PRN:as needed for... Start Date: 06/30/19 Status: Ordered ferrous sulfate 325 mg oral enteric coated tablet 325 mg, 1, tablet, By Mouth, Daily, # 90 tablet, Refills 1, Tot. Refills 1, Maintenance, 06/16/19 15:39:00 EST, Route to Pharmacy Electronically, [facility] #[id number], 170, cm, 06/16/19 15:27:00 EST, [place] Start Date: 06/16/19 Status: Ordered Flonase 50 mcg/inh nasal spray 1 sprays, Nares, Both, Daily in AM, # 1 each, 6 Refills, Maintenance, 06/24/17 15:45:43 EST, [place] Start Date: 06/24/17 Status: Ordered Multivitamins with [...] ER Tablet Start Date: 04/14/19 Status: Ordered Problem List Condition Effective Dates [...]
--- OUTSIDE RECORDS SUMMARY | 2023-01-23 11:59 | XMS_ITS | Continuity of Care Document ---
Author Name Unknown Organization [facility] Address [address] [place] [address]- Care Team Providers Care Architectural Designer Name Role Phone Krystyna Tierney MD Primary Care Physician [phone] Encounter [facility] [place] Date(s): 04/30/22 - 05/30/[address] [address]- Allergies, Adverse Reactions, Alerts No Known Allergies [...] 60 mL, 1 Refills, 05/05/21 12:00:00 EST, [facility] #[id number], apply as needed for excessive sweating, 168, [...] 06/16/19 15:39:00 EST, Route to Pharmacy Electronically, [facility] #[id number], 170, cm, 06/16/19 15:27:00 EST, [place] Start Date: 06/16/19 Status: Ordered Flonase 50 mcg/inh nasal spray 1 sprays, Nares, Both, Daily in AM, # 16 Gm, 6 Refills, Maintenance, 10/18/21 14:50:00 EDT, [place], [facility] #[id number], 1 sprays Nares, Both Daily in AM,x30 [...] 1 Refills, Maintenance, 09/14/21 11:54:00 EDT, Tablet, [facility] #[id number], 1 tablet By Mouth Daily,x28 days, 168, cm, 10/06/20 15:49:00 EDT, Height, 58.8, kg, 06/13/21 17:35:00 EST, Dry Weight Start Date: 09/14/21 Stop Date: 11/09/21 Status: Ordered Zofran 4 mg oral tablet 1 tablet = 4 mg, By Mouth, Every 8 hours, # 12 tablet, 0 Refills, Acute 06/14/22 18:06:00 EST, 06/13/21 18:06:00 EST, Tablet, [facility] #[id number], Partial fill upon patient request if the [...] Team Personnel Name: Krystyna Tierney MD Position: [facility] Primary Care Physician Member Role: PCP Address: Address: [address] [place] [address]- Care Team Related Persons Name: KAREN TRACY Address: [address] Address: [address] [address] Name: IVY LINARES Address: [address] [address]
--- OUTSIDE RECORDS SUMMARY | 2023-01-23 11:59 | XMS_ITS | Continuity of Care Document ---
Author Name Unknown Organization [facility] Address [address] [place] [address]- Care Team Providers Care Wood Block Artist Name Role Phone Krystyna Tierney MD Primary Care Physician Encounter [facility] [place] Date(s): 09/26/20 - 10/26/[address] [address]- Allergies, Adverse Reactions, Alerts Substance Reaction Severity [...] 06/16/19 15:39:00 EST, [id number], 170, cm, 06/16/19 15:27:00 EST, [place] Start Date: 06/16/19 Status: Ordered Flonase 50 mcg/inh nasal spray 1 sprays, Nares, Both, Daily in AM, # 1 each, 6 Refills, Maintenance, 06/24/17 15:45:43 EST, [place] Start Date: 06/24/17 Status: Ordered Multivitamins with [...] 09/27/20 11:36:00 EDT, Tablet, [facility] #[id number], 1 tablet By Mouth Daily,x28 days, 168, [...]
--- OUTSIDE RECORDS SUMMARY | 2023-01-23 11:59 | XMS_ITS | Continuity of Care Document ---
Author Name Unknown Organization [facility] ter Address [address] [place] [address]- Care Team Providers Care General Foundry Worker Name Role Phone Krystyna Tierney MD Primary Care Physician [place] [facility] [place] 05/03/[address] [address]- Encounter Diagnosis Abdominal pain(Final) - 05/03/22 Uses control(Final) - 05/03/22 Discharge Disposition: A-D/C Home Attending Physician: Kyle Valerio MD Admitting Physician: Kyle Valerio MD Referring Physician: Not on Staff, Referring MD Allergies, Adverse Reactions, Alerts No Known Allergies [...] # 60 mL, 1 Refills, 05/05/21 12:00:00 [facility] #[id number], apply as needed for excessive sweating, 168, [...] 06/16/19 15:39:00 EST, Route to Pharmacy Electronically, [facility] #[id number], 170, cm, 06/16/19 15:27:00 EST, [place] Start Date: 06/16/19 Status: Ordered Flonase 50 mcg/inh nasal spray 1 sprays, Nares, Both, Daily in AM, # 16 Gm, 6 Refills, Maintenance, 10/18/21 14:50:00 EDT, [place], [facility] #[id number], 1 sprays Nares, Both Daily in AM,x30 [...] 1 Refills, Maintenance, 09/14/21 11:54:00 EDT, Tablet, [facility] #54033, 1 tablet By Mouth Daily,x28 days, 168, cm, 10/06/20 15:49:00 EDT, Height, 58.8, kg, 06/13/21 17:35:00 EST, Dry Weight Start Date: 09/14/21 Stop Date: 11/09/21 Status: Ordered Zofran 4 mg oral tablet 1 tablet = 4 mg, By Mouth, Every 8 hours, # 12 tablet, 0 Refills, Acute 06/14/22 18:06:00 EST, 06/13/21 18:06:00 EST, Tablet, [email or web address] #41240, Partial fill upon patient request if the [...] of section Confirmed Active period Confirmed Active Results Radiology Reports * Exam Date Time Procedure Performing Provider Status 05/03/22 12:20 PM US Pelvic Transvaginal Olga Lidia Lind; Auth (Verified) Notes: (US Pelvic Transvaginal) Reason For Exam: Pelvic Pain;Other: RESULT: US Pelvic Transvaginal US Pelvic Transabdominal, US Pelvic Doppler Comp, US Pelvic Transvaginal Hx of Present Illness: RLQ Right flank pain x 4 days.; Reason: Other:; Pelvic Pain; Clinical Question(s): Torsion; Order Comment: COMPARISON: None TECHNIQUE: Transabdominal and transvaginal pelvic ultrasound with grayscale, color Doppler, and spectral Doppler analysis. FINDINGS: UTERUS: Size: 6.4 x 2.6 x 4.3 cm, volume 38.5 cc. Endometrial thickness: 0.5 cm. Morphology: Normal configuration and echotexture. RIGHT OVARY: Size: 3.4 x 1.8 x 3.3 cm, volume 10.7 cc. Morphology: Normal echotexture. No pathologic cysts or mass. Normal arterial and venous waveforms. LEFT OVARY: Size: 3.4 x 1.9 x 2.2 cm, volume 7.5 cc. Morphology: Normal echotexture. No pathologic cysts or mass. Normal arterial and venous waveforms. ADNEXA: Trace free fluid in the cul-de-sac and adjacent to right ovary, likely physiologic. Mildly prominent adnexal veins, a nonspecific, often physiologic finding. IMPRESSION: Normal pelvic ultrasound. WSN: [id number] Ordering Physician: Julissa Wayne Dictated By: Antonette MORTENSEN, Demetrio Garcia Dictated Date/Time: 05/03/22 12:27 p Reviewed By: Demetrio Whitman MD Signed By: Demetrio Whitman MD Signed Date/Time: 05/03/22 12:27 pm Transcribed By: MAKSIM Transcribed Date/Time: 05/03/22 12:26 pm * Exam Date Time Procedure Performing Provider Status 05/03/22 12:20 PM US Pelvic Doppler Comp Olga Lidia Lind; Auth (Verified) Notes: (US Pelvic Doppler Comp) Reason For Exam: Pelvic Pain;Other: RESULT: US Pelvic Doppler Comp US Pelvic Transabdominal, US Pelvic Doppler Comp, US Pelvic Transvaginal Hx of Present Illness: RLQ Right flank pain x 4 days.; Reason: Other:; Pelvic Pain; Clinical Question(s): Torsion; Order Comment: COMPARISON: None TECHNIQUE: Transabdominal and transvaginal pelvic ultrasound with grayscale, color Doppler, and spectral Doppler analysis. FINDINGS: UTERUS: Size: 6.4 x 2.6 x 4.3 cm, volume 38.5 cc. Endometrial thickness: 0.5 cm. Morphology: Normal configuration and echotexture. RIGHT OVARY: Size: 3.4 x 1.8 x 3.3 cm, volume 10.7 cc. Morphology: Normal echotexture. No pathologic cysts or mass. Normal arterial and venous waveforms. LEFT OVARY: Size: 3.4 x 1.9 x 2.2 cm, volume 7.5 cc. Morphology: Normal echotexture. No pathologic cysts or mass. Normal arterial and venous waveforms. ADNEXA: Trace free fluid in the cul-de-sac and adjacent to right ovary, likely physiologic. Mildly prominent adnexal veins, a nonspecific, often physiologic finding. IMPRESSION: Normal pelvic ultrasound. WSN: [id number] Ordering Physician: Julissa Wayne Dictated By: Demetrio Whitman MD Dictated Date/Time: 05/03/22 12:27 p Reviewed By: Demetrio Whitman MD Signed By: Demetrio Whitman MD Signed Date/Time: 05/03/22 12:27 pm Transcribed By: MAKSIM Transcribed Date/Time: 05/03/22 12:26 pm * Exam Date Time Procedure Performing Provider Status 05/03/22 12:20 PM US Pelvic Transabdominal Eliana Lind; Auth (Verified) Notes: (US Pelvic Transabdominal) Reason For Exam: Pelvic Pain;Other: RESULT: US Pelvic Transabdominal US Pelvic Transabdominal, US Pelvic Doppler Comp, US Pelvic Transvaginal Hx of Present Illness: RLQ Right flank pain x 4 days.; Reason: Other:; Pelvic Pain; Clinical Question(s): Torsion; Order Comment: COMPARISON: None TECHNIQUE: Transabdominal and transvaginal pelvic ultrasound with grayscale, color Doppler, and spectral Doppler analysis. FINDINGS: UTERUS: Size: 6.4 x 2.6 x 4.3 cm, volume 38.5 cc. Endometrial thickness: 0.5 cm. Morphology: Normal configuration and echotexture. RIGHT OVARY: Size: 3.4 x 1.8 x 3.3 cm, volume 10.7 cc. Morphology: Normal echotexture. No pathologic cysts or mass. Normal arterial and venous waveforms. LEFT OVARY: Size: 3.4 x 1.9 x 2.2 cm, volume 7.5 cc. Morphology: Normal echotexture. No pathologic cysts or mass. Normal arterial and venous waveforms. ADNEXA: Trace free fluid in the cul-de-sac and adjacent to right ovary, likely physiologic. Mildly prominent adnexal veins, a nonspecific, often physiologic finding. IMPRESSION: Normal pelvic ultrasound. WSN: [id number] Ordering Physician: Julissa Wayne Dictated By: Demetrio Whitman MD Dictated Date/Time: 05/03/22 12:27 p Reviewed By: Demetrio Whitman MD Signed By: Demetrio Whitman MD Signed Date/Time: 05/03/22 12:27 pm Transcribed By: MAKSIM Transcribed Date/Time: 05/03/22 12:26 pm Vital Signs Most recent to oldest [Reference Range]: 1 2 3 Height 168 cm (05/03/22 1:39 PM) 168 cm (05/03/22 4:11 AM) 168 cm (05/02/22 5:13 PM) Oxygen Saturation [94-100 %] 100 % (05/03/22 1:39 PM) 100 % (05/03/22 12:34 PM) 100 % (05/03/22 11:49 AM) Pulse Rate [55-90 bpm] 92 bpm *H* (05/03/22 1:39 PM) 97 bpm *H* (05/03/22 12:34 PM) 104 bpm *H* (05/03/22 11:49 AM) Blood Pressure [90-138/55-84 mm Hg] 143/85mm Hg *H* (05/03/22 1:39 PM) 149/83mm Hg *H* (05/03/22 12:34 PM) 154/96mm Hg *H* (05/03/22 11:49 AM) Respiratory Rate [16-30 br/min] 18 br/min (05/03/22 1:39 PM) 18 br/min (05/02/22 11:57 PM) 18 br/min (05/02/22 6:00 PM) Temperature [96.8-100.4 DegF] 98.3 DegF (05/03/22 1:39 PM) 98.0 DegF (05/03/22 11:49 AM) 97.8 DegF (05/03/22 8:38 AM) Mode of Delivery (Oxygen) Room air (05/03/22 1:39 PM) Room air (05/03/22 12:34 PM) Room air (05/03/22 11:49 AM) Blood pressure sites Arm, left (05/03/22 1:39 PM) Arm, right (05/03/22 12:34 PM) Arm, left (05/03/22 11:49 AM) Temperature Route Oral (05/03/22 1:39 PM) Oral (05/03/22 11:49 AM) Oral (05/03/22 8:38 AM) Dry Weight 61 kg (05/03/22 1:39 PM) 61 kg (05/03/22 4:11 AM) 61 kg (05/02/22 5:13 PM) Dry Weight Obtained Via Patient/family s tated (05/02/22 5:13 PM) Social History Social History Type Response Smoking Status Never (less than 100 in lifetime); Tobacco user in household: No entered on: 01/09/19 Sex US Pelvis transvaginal * [facility] , CIS S: TRANSCRIMIRELLA Whitman MD, Demetrio Garcia: VERIFY Event Display: Result: Authored Date: [id number] US Pelvic Transabdominal, US Pelvic Doppler Comp, US Pelvic Transvaginal Hx of Present Illness: RLQ Right flank pain x 4 days.; Reason: Other:; Pelvic Pain; Clinical Question(s): Torsion; Order Comment: COMPARISON: None TECHNIQUE: Transabdominal and transvaginal pelvic ultrasound with grayscale, color Doppler, and spectral Doppler analysis. FINDINGS: UTERUS: Size: 6.4 x 2.6 x 4.3 cm, volume 38.5 cc. Endometrial thickness: 0.5 cm. Morphology: Normal configuration and echotexture. RIGHT OVARY: Size: 3.4 x 1.8 x 3.3 cm, volume 10.7 cc. Morphology: Normal echotexture. No pathologic cysts or mass. Normal arterial and venous waveforms. LEFT OVARY: Size: 3.4 x 1.9 x 2.2 cm, volume 7.5 cc. Morphology: Normal echotexture. No pathologic cysts or mass. Normal arterial and venous waveforms. ADNEXA: Trace free fluid in the cul-de-sac and adjacent to right ovary, likely physiologic. Mildly prominent adnexal veins, a nonspecific, often physiologic finding. IMPRESSION: Normal pelvic ultrasound. WSN: [id number] Ordering Physician: Julissa Wayne Dictated By: Demetrio Whitman MD Dictated Date/Time: 05/03/22 12:27 p Reviewed By: Demetrio Whitman MD Signed By: Demetrio Whitman MD Signed Date/Time: 05/03/22 12:27 pm Transcribed By: MAKSIM Transcribed Date/Time: 05/03/22 12:26 pm Note * [facility] , CIS S: TRANSCRIBE Demetrio Whitman MD: VERIFY Event Display: Result: Authored Date: [id number] US Pelvic Transabdominal, US Pelvic Doppler Comp, US Pelvic Transvaginal Hx of Present Illness: RLQ Right flank pain x 4 days.; Reason: Other:; Pelvic Pain; Clinical Question(s): Torsion; Order Comment: COMPARISON: None TECHNIQUE: Transabdominal and transvaginal pelvic ultrasound with grayscale, color Doppler, and spectral Doppler analysis. FINDINGS: UTERUS: Size: 6.4 x 2.6 x 4.3 cm, volume 38.5 cc. Endometrial thickness: 0.5 cm. Morphology: Normal configuration and echotexture. RIGHT OVARY: Size: 3.4 x 1.8 x 3.3 cm, volume 10.7 cc. Morphology: Normal echotexture. No pathologic cysts or mass. Normal arterial and venous waveforms. LEFT OVARY: Size: 3.4 x 1.9 x 2.2 cm, volume 7.5 cc. Morphology: Normal echotexture. No pathologic cysts or mass. Normal arterial and venous waveforms. ADNEXA: Trace free fluid in the cul-de-sac and adjacent to right ovary, likely physiologic. Mildly prominent adnexal veins, a nonspecific, often physiologic finding. IMPRESSION: Normal pelvic ultrasound. WSN: [id number] Ordering Physician: Julissa Wayne Dictated By: Demetrio Whitman MD Dictated Date/Time: 05/03/22 12:27 p Reviewed By: Demetrio Whitman MD Signed By: Demetrio Whitman MD Signed Date/Time: 05/03/22 12:27 pm Transcribed By: MAKSIM Transcribed Date/Time: 05/03/22 12:26 pm US Pelvis * [facility] , CIS S: TRANSCRIBE Demetrio Whitman MD: VERIFY Event Display: Result: Authored Date: US Pelvic Transabdominal, US Pelvic Doppler Comp, US Pelvic Transvaginal Hx of Present Illness: RLQ Right flank pain x 4 days.; Reason: Other:; Pelvic Pain; Clinical Question(s): Torsion; Order Comment: COMPARISON: None TECHNIQUE: Transabdominal and transvaginal pelvic ultrasound with grayscale, color Doppler, and spectral Doppler analysis. FINDINGS: UTERUS: Size: 6.4 x 2.6 x 4.3 cm, volume 38.5 cc. Endometrial thickness: 0.5 cm. Morphology: Normal configuration and echotexture. RIGHT OVARY: Size: 3.4 x 1.8 x 3.3 cm, volume 10.7 cc. Morphology: Normal echotexture. No pathologic cysts or mass. Normal arterial and venous waveforms. LEFT OVARY: Size: 3.4 x 1.9 x 2.2 cm, volume 7.5 cc. Morphology: Normal echotexture. No pathologic cysts or mass. Normal arterial and venous waveforms. ADNEXA: Trace free fluid in the cul-de-sac and adjacent to right ovary, likely physiologic. Mildly prominent adnexal veins, a nonspecific, often physiologic finding. IMPRESSION: Normal pelvic ultrasound. WSN: [id number] Ordering Physician: Julissa Wayne Dictated By: Demetrio Whitman MD Dictated Date/Time: 05/03/22 12:27 p Reviewed By: Demetrio Whitman MD Signed By: Demetrio Whitman MD Signed Date/Time: 05/03/22 12:27 pm Transcribed By: MAKSIM Transcribed Date/Time: 05/03/22 12:26 pm Patient Care team information Care Team Personnel Name: Krystyna Tierney MD Position: [facility] Primary Care Physician Member Role: PCP Address: Address: [address] [place] [address]- Name: Melissa Maurice Position: [facility] ED RN W/OE and Tasks Member Role: Patient Care Provider Name: Kyle Valerio MD Position: [facility] Resident Member Role: Admitting Physician Address: Address: [address] [place] [address] Name: Fabiola López Position: [facility] ED RN W/OE and Tasks Member Role: Patient Care Provider Name: Julissa Wayne MD Position: [facility] Resident Member Role: ED Resident Address: Address: [address] [place] [address] Name: Cathy Ferrer Position: [facility] ED TA [facility] Member Role: Technical Applications Specialist Care Team Related Persons Name: KAREN TRACY Address: Address: [address] [address] [place] Name: IVY LINARES Address: home [address] [address]
--- OUTSIDE RECORDS SUMMARY | 2023-01-23 11:59 | XMS_ITS | Continuity of Care Document ---
Author Name Unknown Organization [facility] Address [address] [place] [address]- Care Team Providers Care Layer Out Name Role Phone Krystyna Tierney MD Primary Care Physician [phone] [place] [facility] [id number] Date(s): 05/03/22 - 06/02/[address] [address]- Attending Physician: AdmtrAyanna Admitting Physician: Admtr, Ar8 [...] 60 mL, 1 Refills, 05/05/21 12:00:00 EST, [facility] #[id number], apply as needed for excessive sweating, 168, [...] 06/16/19 15:39:00 EST, Route to Pharmacy Electronically, [facility] #47276, 170, cm, 06/16/19 15:27:00 EST, Height Start Date: 06/16/19 Status: Ordered Flonase 50 mcg/inh nasal spray 1 sprays, Nares, Both, Daily in AM, # 16 Gm, 6 Refills, Maintenance, 10/18/21 14:50:00 EDT, [place], [facility] #67385, 1 sprays Nares, Both Daily in AM,x30 [...] 1 Refills, Maintenance, 09/14/21 11:54:00 EDT, Tablet, [facility] #83117, 1 tablet By Mouth Daily,x28 days, 168, cm, 10/06/20 15:49:00 EDT, Height, 58.8, kg, 06/13/21 17:35:00 EST, Dry Weight Start Date: 09/14/21 Stop Date: 11/09/21 Status: Ordered Zofran 4 mg oral tablet 1 tablet = 4 mg, By Mouth, Every 8 hours, # 12 tablet, 0 Refills, Acute 06/14/22 18:06:00 EST, 06/13/21 18:06:00 EST, Tablet, [facility] #07941, Partial fill upon patient request if the [...] Team Personnel Name: Krystyna Tierney MD Position: S Primary Care Physician Member Role: PCP Address: Address: [address] [place] [address]- Care Team Related Persons Name: KAREN TRACY Address: [address] Address: [address] [address] [place] Name: IVY LINARES Address: [address] [address]
--- OUTSIDE RECORDS SUMMARY | 2023-01-23 11:59 | XMS_ITS | Continuity of Care Document ---
Author Name Unknown Organization [facility] Address [address] [place] [address]- Care Team Providers Care Manager Market Development Name Role Phone Krystyna Tierney MD Primary Care Physician Encounter [facility] [place] Date(s): 05/31/21 - 06/30/[address] [address]- Attending Physician: Admjax, Ayanna Admitting Physician: Admtr, Ar8 Referring Physician: Admtr, Ar8 Allergies, Adverse Reactions, Alerts No Known Allergies Immunizations Given and Recorded Vaccine Date Status Refusal Reason tetanus/diphtheria/pertussis, acel(Tdap) 06/02/19 Given influenza virus vaccine, inactivated 03/17/19 Give n influenza virus vaccine, inactivated 06/24/17 Give n Medications Drysol 20% topical solution See Instructions, apply as needed for excessive sweating, # 60 mL, 1 Refills, 05/05/21 12:00:00 EST, [facility] #99696, apply as needed for excessive sweating, 168, cm, 10/06/20 15:49:00 EDT, Height, 70.5, kg, 08/13/19 11:32:00 EDT, Dry Weight Start Date: 05/05/21 Status: Ordered ferrous sulfate 325 mg oral enteric coated tablet 325 mg, 1, tablet, By Mouth, Daily, # 90 tablet, Refills 1, Tot. Refills 1, Maintenance, 06/16/19 15:39:00 EST, Route to Pharmacy Electronically, [facility] #99347, 170, cm, 06/16/19 15:27:00 EST, Height Start Date: 06/16/19 Status: Ordered Flonase 50 mcg/inh nasal spray 1 sprays, Nares, Both, Daily in AM, # 1 each, 6 Refills, Maintenance, 06/24/17 15:45:43 EST, [place] Start Date: 06/24/17 Status: Ordered Multivitamins with [...] 11 Refills, Maintenance, 09/27/20 11:36:00 EDT, Tablet, [facility] #16819, 1 tablet By Mouth Daily,x28 days, 168, cm, 09/22/19 16:50:00 EDT, Height, 70.5, kg, 08/13/19 11:32:00 EDT, Dry Weight Start Date: 09/27/20 Stop Date: 08/29/21 Status: Ordered Zofran 4 mg oral tablet 1 tablet = 4 mg, By Mouth, Every 8 hours, # 12 tablet, 0 Refills, Acute 06/14/22 18:06:00 EST, 06/13/21 18:06:00 EST, Tablet, [facility] #81489, Partial fill upon patient request if the [...]
--- OUTSIDE RECORDS SUMMARY | 2023-01-23 11:59 | XMS_ITS | Continuity of Care Document ---
Author Name Unknown Organization [facility] Address [address] [place] [address]- Care Team Providers Care Rose Grower Name Role Phone Hugo CRUMP [facility] Primary Care Physician [place] [facility] [place]04/[place] - 09/17/[address] [address]- [place] Attending Physician: Nuria Haynes MD Admitting Physician: Nuria Haynes MD Referring Physician: Leona Mcintyre CNM Allergies, Adverse Reactions, [...] 06/16/19 15:39:00 EST, Route to Pharmacy Electronically, [facility] #90081, 170, cm, 06/16/19 15:27:00 EST, [place] Start Date: 06/16/19 Status: Ordered Flonase 50 mcg/inh nasal spray 1 sprays, Nares, Both, Daily in AM, # 1 each, 6 Refills, Maintenance, 06/24/17 15:45:43 EST, [place] Start Date: 06/24/17 Status: Ordered Multivitamins with [...]
--- OUTSIDE RECORDS SUMMARY | 2023-01-23 11:59 | XMS_ITS | Continuity of Care Document ---
Author Name Unknown Organization [facility] Juan barahonas [facility] Address [address], [address] [place] [address]- Care Team Providers Care Metal Flooring Installer Name Role Phone Mercy Arias DO Primary Care Physician [phone] [place] [facility] [place] [facility] Juan Johnsons [facility] [address], [address] [place] [address]- Attending Physician: AdmAyanna camara Admitting Physician: AdmtrAyanna Referring Physician: Admtr ArLos Allergies, Adverse Reactions, Alerts Substance Reaction Severity [...] 1 Refills, Maintenance, 06/30/19 15:58:00 EST, Solution, [facility] #[id number], Rx in [place]ian, 1 application Topically Daily at bedtime,PRN:as needed for... Start Date: 06/30/19 Status: Ordered ferrous sulfate 325 mg oral enteric coated tablet 325 mg, 1, tablet, By Mouth, Daily, # 90 tablet, Refills 1, Tot. Refills 1, Maintenance, 06/16/19 15:39:00 EST, Route to Pharmacy Electronically, [facility] #[id number], 170, cm, 06/16/19 15:27:00 EST, [place] Start Date: 06/16/19 Status: Ordered Flonase 50 mcg/inh nasal spray 1 sprays, Nares, Both, Daily in AM, # 1 each, 6 Refills, Maintenance, 06/24/17 15:45:43 EST, [place] Start Date: 06/24/17 Status: Ordered Multivitamins with [...]
--- OUTSIDE RECORDS SUMMARY | 2023-01-23 11:59 | XMS_ITS | Continuity of Care Document ---
Author Name Unknown Organization [facility] Address [address] [place] [address]- Care Team Providers Care Clinical Operations Consultant Name Role Phone Krystyna Tierney MD Primary Care Physician [phone] En[facility] [id number] Date(s): 10/18/21 - 11/17/[address] [address] Attending Physician: Admtr, Ayanna Admitting Physician: AdmtrAyanna [...] # 60 mL, 1 Refills, 05/05/21 12:00:00 [facility] #08873, apply as needed for excessive sweating, 168, [...] 06/16/19 15:39:00 EST, Route to Pharmacy Electronically, [facility] #55597, 170, cm, 06/16/19 15:27:00 EST, [place] Start Date: 06/16/19 Status: Ordered Flonase 50 mcg/inh nasal spray 1 sprays, Nares, Both, Daily in AM, # 16 Gm, 6 Refills, Maintenance, 10/18/21 14:50:00 EDT, [place], [facility] #21394, 1 sprays Nares, Both Daily in AM,x30 [...] 1 Refills, Maintenance, 09/14/21 11:54:00 EDT, Tablet, [facility] #16118, 1 tablet By Mouth Daily,x28 days, 168, cm, 10/06/20 15:49:00 EDT, Height, 58.8, kg, 06/13/21 17:35:00 EST, Dry Weight Start Date: 09/14/21 Stop Date: 11/09/21 Status: Ordered Zofran 4 mg oral tablet 1 tablet = 4 mg, By Mouth, Every 8 hours, # 12 tablet, 0 Refills, Acute 06/14/22 18:06:00 EST, 06/13/21 18:06:00 EST, Tablet, [facility] #32585, Partial fill upon patient request if the [...]
--- OUTSIDE RECORDS SUMMARY | 2023-01-23 11:59 | XMS_ITS | Continuity of Care Document ---
Author Name Unknown Organization [facility] Address [address] [place] [address]- Care Team Providers Care Industrial Chemistry Teacher Name Role Phone Krystyna Tierney MD Primary Care Physician Encounter [facility] [place] Date(s): 10/11/20 - 11/10/[address] [address]- Allergies, Adverse Reactions, Alerts Substance Reaction Severity [...] 06/16/19 15:39:00 EST, Route to Pharmacy Electronically, [facility][id number], 170, cm, 06/16/19 15:27:00 EST, [place] Start Date: 06/16/19 Status: Ordered Flonase 50 mcg/inh nasal spray 1 sprays, Nares, Both, Daily in AM, # 1 each, 6 Refills, Maintenance, 06/24/17 15:45:43 EST, [place] Start Date: 06/24/17 Status: Ordered Multivitamins with [...] 09/27/20 11:36:00 EDT, Tablet, [facility] #54962, 1 tablet By Mouth Daily,x28 days, 168, [...]
[2023-01-23] MEDS: iohexoL 350 MG/ML 100 ML INFUS..BTL 85 ML IV (12:28)
[2023-01-23 13:23] VITALS: BP 119/71; PULSE 73; RESP 16; O2SAT 100
--- NOTE | 2023-01-23 13:24 | PC.NURSE ---
pt a&ox3, vss and up to date, pt verbalizing no change in pain level. call walker placed within reach.
[2023-01-23] MEDS: Ketorolac Tromethamine 30 MG/ML VIAL IVPUSH (13:39)
--- NOTE | 2023-01-23 13:41 | PC.NURSE ---
medication administered per provider order.
== END 2023-01-23 14:07 | disposition home or self-care (01) ==
PROVIDERS: Emergency Provider Emergency Medicine
DX: R10.30 Lower abdominal pain, unspecified (principal); M54.50 Low back pain, unspecified; Z79.899 Other long term (current) drug therapy
CPT/HCPCS: 36415; 74177; 80048; 80076; 81003; 81025; 83690; 85025; 96374; 99284; J1885; Q9967